=== PATIENT | female | born 1960 | race African-American/Black ===

== ENCOUNTER 2020-07-01 20:45 | Observation (INO) ==
[2020-07-01 21:12] LABS: Basophils % 0.5 %; Eosinophils # 0.1 K/mcL (0.0-0.6); Eosinophils % 1.3 %; Hematocrit 32.1 % (35.3-44.9); Hemoglobin 9.7 g/dL (11.5-15.4); Immature Granulocytes % 0.4 % (0-4); Lymphocytes # 2.3 K/mcL (0.6-4.6); Lymphocytes % 29.9 %; Mean Corpuscular HGB Conc 30.2 g/dL (31.6-35.5); Mean Corpuscular Hemoglobin 25.3 pg (28.0-33.3); Mean Corpuscular Volume 83.8 fL (83.0-100.0); Mean Platelet Volume 9.3 fL (9.4-12.4); Monocytes # 0.6 K/mcL (0.0-1.3); Monocytes % 8.5 %; Neutrophils # 4.5 K/mcL (1.6-8.9); Platelet Count 384 K/mcL (140-400); Red Blood Count 3.83 M/mcL (3.82-4.97); Segmented Neutrophils % 59.4 %; White Blood Count 7.5 K/mcL (4.3-11.1)
[2020-07-01 21:24] LABS: INR 1.1; Prothrombin Time 12.4 Seconds (9.4-12.1)
[2020-07-01 21:32] LABS: Alanine Aminotransferase 9 Units/L (7-52); Albumin 3.9 g/dL (3.5-5.7); Albumin/Globulin Ratio 1.1 (1.1-2.2); Alkaline Phosphatase 111 Units/L (34-104); Aspartate Amino Transferase 17 Units/L (13-39); BUN/Creatinine Ratio 14 (6-26); Bilirubin,Total 0.2 mg/dL (0.3-1.0); Blood Urea Nitrogen 10 mg/dL (6-20); Calcium 9.2 mg/dL (8.6-10.3); Carbon Dioxide 27 mEq/L (23-29); Chloride 99 mEq/L (98-107); Ethanol 234 mg/dL (Less than 10); Globulin 3.7 g/dL (2.4-3.5); Glucose 119 mg/dL (70-105); Magnesium 1.7 mg/dL (1.6-2.6); Osmolality,Calculated 292 (280-300); Potassium 3.4 mEq/L (3.5-5.1); Sodium 141 mEq/L (136-145); Total Protein 7.6 g/dL (6.4-8.9); eGFR For African Americans > 60 (> 60); eGFR For Non-African Americans > 60 (> 60)
[2020-07-01 21:34] LABS: Troponin I < 0.03 ng/mL (< 0.04)
[2020-07-01] MEDS ORDERED: 0.9 % Sodium Chloride 1,000 ML IV ONE (21:49)
[2020-07-01 22:11] LABS: Bilirubin,Urine Negative (Negative); Blood,Urine Negative (Negative); Clarity,Urine Clear (Clear); Color,Urine Yellow (Yellow); Glucose,Urine (UA) Normal (Normal); Ketones,Urine Negative (Negative); Leukocyte Esterase,Urine Negative (Negative); Nitrite,Urine Positive (Negative); Protein,Urine Negative (Neg-Trace); Urobilinogen,Urine Normal (Normal)
[2020-07-01 22:18] LABS: Bacteria,Urine Many per hpf (None-Few); Squamous Epithelial Cell,Urine Moderate per hpf (None-Few)
[2020-07-01 22:19] LABS: Hyaline Casts,Urine Moderate per lpf (None Seen)
[2020-07-01] MEDS ORDERED: Ketorolac 30 MG/ML VIAL IVP ONE (22:20)
[2020-07-01 22:25] LABS: Amphetamine Screen,Urine Negative ng/mL (Cutoff=1000); Barbiturate Screen,Urine Negative ng/mL (Cutoff=200); Benzodiazepines Screen,Urine Negative ng/mL (Cutoff=200); Cannabinoid Screen,Urine Negative ng/mL (Cutoff = 50); Cocaine Screen,Urine Negative ng/mL (Cutoff= 300); Opiate Screen,Urine Negative ng/mL (Cutoff=300); Phencyclidine Screen,Urine Negative ng/mL (Cutoff=25)
[2020-07-01] MEDS ORDERED: cefTRIAXone 1,000 MG in 0.9 % Sodium Chloride Mini Bag 100 ML IVPB ONE ×2 (22:48→23:53)
[2020-07-01] MEDS ORDERED: 0.9 % Sodium Chloride 1,000 ML IVC SCH (23:53)
[2020-07-01] MEDS ORDERED: Ondansetron 4 MG/2 ML VIAL IVP PRN (23:53)
[2020-07-01] MEDS ORDERED: Naloxone 0.4 MG/ML INJ IVP PRN (23:53)
[2020-07-02] MEDS ORDERED: MVI, adult with vitamin K 10 ML in 0.9 % Sodium Chloride 1,000 ML IVC ONE (07:48)
[2020-07-02] MEDS: Aspirin Enteric Coated 325 MG Tablet PO SCH (08:03)
[2020-07-02] MEDS: Sucralfate 1 GM TABLET PO SCH ×4 (08:03→20:39)
[2020-07-02] MEDS: PALIPERIDONE 1.5 MG PO SCH (08:05)
[2020-07-02] MEDS: (Vortioxetine Hydrobromide [Trintellix] 10 MG) PO SCH (08:05)
[2020-07-02] MEDS ORDERED: clonazePAM 0.5 MG TABLET PO SCH (09:00)
[2020-07-02 12:25] LABS: Adenovirus Not Detected (Not Detect); Coronavirus 229E Not Detected (Not Detect); Coronavirus HKU1 Not Detected (Not Detect); Coronavirus NL63 Not Detected (Not Detect); Coronavirus OC43 Not Detected (Not Detect); Human Metapneumovirus Not Detected (Not Detect); Human Rhinovirus/Enterovirus Not Detected (Not Detect); Influenza A Subtype 2009 H1 Not Detected (Not Detect)
[2020-07-02 12:26] LABS: Bordetella Pertussis Not Detected (Not Detect); Chlamydophila pneumoniae Not Detected (Not Detect); Influenza B Not Detected (Not Detect); Mycoplasma pneumoniae Not Detected (Not Detect); Parainfluenza Virus 1 Not Detected (Not Detect); Parainfluenza Virus 2 Not Detected (Not Detect); Parainfluenza Virus 3 Not Detected (Not Detect); Parainfluenza Virus 4 Not Detected (Not Detect); Respiratory Syncytial Virus Not Detected (Not Detect)
[2020-07-02] MEDS ORDERED: Acetaminophen 325 MG TABLET PO PRN (15:48)
[2020-07-02] MEDS ORDERED: Albuterol 2.5 MG/3 ML NEBULIZER IH PRN (15:52)
[2020-07-02] MEDS: Nicotine 21 MG PATCH.TD24 TD SCH (16:01)
[2020-07-02] MEDS: clonazePAM 0.5 MG TABLET PO SCH (20:39)
[2020-07-02] MEDS ORDERED: Melatonin 3 MG TABLET PO SCH (21:00)
[2020-07-02] MEDS ORDERED: cefTRIAXone 1,000 MG in 0.9 % Sodium Chloride Mini Bag 100 ML IVPB SCH (21:00)
[2020-07-03] MEDS ORDERED: *HR* Enoxaparin 40 MG/0.4 ML SYRINGE SQ SCH (06:00)
[2020-07-03 06:47] VITALS: BP 131/73
[2020-07-03 07:08] LABS: Basophils % 0.4 %; Eosinophils # 0.3 K/mcL (0.0-0.6); Eosinophils % 3.5 %; Hemoglobin 8.8 g/dL (11.5-15.4); Immature Granulocytes % 0.3 % (0-4); Lymphocytes # 1.7 K/mcL (0.6-4.6); Lymphocytes % 21.6 %; Mean Corpuscular HGB Conc 29.3 g/dL (31.6-35.5); Mean Corpuscular Hemoglobin 25.2 pg (28.0-33.3); Mean Platelet Volume 9.8 fL (9.4-12.4); Monocytes # 0.7 K/mcL (0.0-1.3); Monocytes % 9.6 %; Neutrophils # 4.9 K/mcL (1.6-8.9); Platelet Count 316 K/mcL (140-400); Red Blood Count 3.49 M/mcL (3.82-4.97); Red Cell Distribution Width 20.5 % (11.5-14.5); Segmented Neutrophils % 64.6 %; White Blood Count 7.6 K/mcL (4.3-11.1)
[2020-07-03] MEDS: Sucralfate 1 GM TABLET PO SCH ×2 (07:38→12:03)
[2020-07-03] MEDS: Nicotine 21 MG PATCH.TD24 TD SCH (07:38)
[2020-07-03] MEDS: clonazePAM 0.5 MG TABLET PO SCH (07:38)
[2020-07-03] MEDS: Aspirin Enteric Coated 325 MG Tablet PO SCH (07:38)
[2020-07-03] MEDS: PALIPERIDONE 1.5 MG PO SCH (07:39)
[2020-07-03] MEDS: (Vortioxetine Hydrobromide [Trintellix] 10 MG) PO SCH (07:39)
[2020-07-03 08:31] LABS: BUN/Creatinine Ratio 25 (6-26); Blood Urea Nitrogen 12 mg/dL (6-20); Calcium 8.8 mg/dL (8.6-10.3); Carbon Dioxide 35 mEq/L (23-29); Chloride 101 mEq/L (98-107); Glucose 114 mg/dL (70-105); Osmolality,Calculated 293 (280-300); Sodium 141 mEq/L (136-145); eGFR For African Americans > 60 (> 60); eGFR For Non-African Americans > 60 (> 60)
[2020-07-16] MEDS ORDERED: (Paliperidone Palmitate [Invega Sustenna] 234 MG) IM SCH (09:00)
== END 2020-07-03 12:32 | disposition home health service (06) ==
LOC: EMEROOPIK 20:45 → INPPIK 20:45
PROVIDERS: ADMIT Family Medicine; ATTEND Family Medicine

== ENCOUNTER 2020-08-22 10:29 | Inpatient (IN) ==
[2020-08-22 10:50] LABS: Basophils % 0.4 %; Eosinophils # 0.2 K/mcL (0.0-0.6); Eosinophils % 1.8 %; Hematocrit 28.4 % (35.3-44.9); Hemoglobin 7.8 g/dL (11.5-15.4); Immature Granulocytes % 0.4 % (0-4); Lymphocytes # 2.3 K/mcL (0.6-4.6); Lymphocytes % 20.9 %; Mean Corpuscular HGB Conc 27.5 g/dL (31.6-35.5); Mean Corpuscular Hemoglobin 21.9 pg (28.0-33.3); Mean Corpuscular Volume 79.8 fL (83.0-100.0); Mean Platelet Volume 9.7 fL (9.4-12.4); Monocytes # 0.8 K/mcL (0.0-1.3); Monocytes % 7.2 %; Neutrophils # 7.8 K/mcL (1.6-8.9); Nucleated Red Blood Cells 0.3 /100 WBC (0); Platelet Count 317 K/mcL (140-400); Red Blood Count 3.56 M/mcL (3.82-4.97); Red Cell Distribution Width 22.4 % (11.5-14.5); Segmented Neutrophils % 69.3 %; White Blood Count 11.2 K/mcL (4.3-11.1)
[2020-08-22 11:05] LABS: BUN/Creatinine Ratio 12 (6-26); Blood Urea Nitrogen 6 mg/dL (6-20); Calcium 8.3 mg/dL (8.6-10.3); Carbon Dioxide 38 mEq/L (23-29); Chloride 101 mEq/L (98-107); Glucose 107 mg/dL (70-105); Osmolality,Calculated 292 (280-300); Potassium 3.3 mEq/L (3.5-5.1); Sodium 142 mEq/L (136-145); eGFR For African Americans > 60 (> 60); eGFR For Non-African Americans > 60 (> 60)
[2020-08-22 11:07] LABS: INR 1.1; Prothrombin Time 12.4 Seconds (9.4-12.1)
[2020-08-22 11:09] LABS: Troponin I < 0.03 ng/mL (< 0.04)
[2020-08-22 11:24] LABS: Anisocytosis 1+ (Not Present); Hypochromasia Present (Not Present); Microcytosis Present (Not Present)
[2020-08-22 15:54] LABS: Adenovirus Not Detected (Not Detect); Coronavirus 229E Not Detected (Not Detect); Coronavirus HKU1 Not Detected (Not Detect); Coronavirus NL63 Not Detected (Not Detect); Coronavirus OC43 Not Detected (Not Detect); SARS-CoV-2 Not Detected (Not Detect)
[2020-08-22 15:55] LABS: Bordetella Pertussis Not Detected (Not Detect); Chlamydophila pneumoniae Not Detected (Not Detect); Human Metapneumovirus Not Detected (Not Detect); Human Rhinovirus/Enterovirus Not Detected (Not Detect); Influenza A Subtype 2009 H1 Not Detected (Not Detect); Influenza B Not Detected (Not Detect); Mycoplasma pneumoniae Not Detected (Not Detect); Parainfluenza Virus 1 Not Detected (Not Detect); Parainfluenza Virus 2 Not Detected (Not Detect); Parainfluenza Virus 3 Not Detected (Not Detect); Parainfluenza Virus 4 Not Detected (Not Detect); Respiratory Syncytial Virus Not Detected (Not Detect)
[2020-08-22] MEDS ORDERED: Naloxone 0.4 MG/ML INJ IVP PRN (16:41)
[2020-08-22] MEDS ORDERED: Acetaminophen 325 MG TABLET PO PRN (16:41)
[2020-08-22] MEDS ORDERED: Ondansetron ODT 4 MG TAB.RAPDIS SL PRN (16:41)
[2020-08-22] MEDS ORDERED: Perflutren Lipid Microsphere 1.3 ML in 0.9 % Sodium Chloride 8.7 ML IVP PRN (16:44)
[2020-08-22] MEDS: Losartan/HCTZ 50-12.5 TABLET PO SCH (18:15)
[2020-08-22] MEDS: levoFLOXacin 750 MG/150 ML 750 MG/150 ML BAG IVPB SCH (18:18)
[2020-08-22] MEDS: Budesonide/Formoterol 160/4.5 1 PUFF INH IH SCH (20:31)
[2020-08-22] MEDS: Ipratropium/Albuterol Neb 3 ML IH SCH ×2 (20:31→23:36)
[2020-08-22] MEDS: Furosemide 20 MG/2 ML VIAL IVP SCH (21:08)
[2020-08-22] MEDS: clonazePAM 0.5 MG TABLET PO SCH (21:09)
[2020-08-22] MEDS: Melatonin 3 MG TABLET PO SCH ×2 (21:09→21:15)
[2020-08-22] MEDS: Famotidine 20 MG TABLET PO SCH (21:09)
[2020-08-22] MEDS: MethylPREDNISolone 40 MG/ML VIAL IVP SCH (22:54)
[2020-08-22] MEDS: Sucralfate 1 GM TABLET PO SCH ×2 (22:54→23:22)
[2020-08-23] MEDS: Ipratropium/Albuterol Neb 3 ML IH SCH ×5 (04:18→22:13)
[2020-08-23] MEDS: Sucralfate 1 GM TABLET PO SCH ×4 (05:46→21:24)
[2020-08-23 06:15] LABS: Basophils % 0.2 %; Hematocrit 30.9 % (35.3-44.9); Hemoglobin 8.6 g/dL (11.5-15.4); Immature Granulocytes % 0.6 % (0-4); Lymphocytes # 0.9 K/mcL (0.6-4.6); Mean Corpuscular HGB Conc 27.8 g/dL (31.6-35.5); Mean Corpuscular Hemoglobin 22.2 pg (28.0-33.3); Mean Corpuscular Volume 79.6 fL (83.0-100.0); Mean Platelet Volume 10.5 fL (9.4-12.4); Monocytes # 0.2 K/mcL (0.0-1.3); Monocytes % 1.4 %; Nucleated Red Blood Cells 0.2 /100 WBC (0); Platelet Count 371 K/mcL (140-400); Red Blood Count 3.88 M/mcL (3.82-4.97); Red Cell Distribution Width 22.6 % (11.5-14.5); Segmented Neutrophils % 90.8 %; White Blood Count 12.4 K/mcL (4.3-11.1)
[2020-08-23 06:42] LABS: Alanine Aminotransferase 9 Units/L (7-52); Albumin 3.3 g/dL (3.5-5.7); Albumin/Globulin Ratio 0.9 (1.1-2.2); Alkaline Phosphatase 127 Units/L (34-104); Aspartate Amino Transferase 12 Units/L (13-39); BUN/Creatinine Ratio 11 (6-26); Bilirubin,Total 0.4 mg/dL (0.3-1.0); Blood Urea Nitrogen 6 mg/dL (6-20); Calcium 8.5 mg/dL (8.6-10.3); Carbon Dioxide 41 mEq/L (23-29); Chloride 97 mEq/L (98-107); Chol/HDL Ratio 2.4 (0-4.9); Cholesterol 129 mg/dL (< 200); Globulin 3.5 g/dL (2.4-3.5); Glucose 147 mg/dL (70-105); HDL Cholesterol 53 mg/dL (40-59); LDL Cholesterol,Calculated 65 mg/dL (< 100); Magnesium 1.7 mg/dL (1.6-2.6); Osmolality,Calculated 294 (280-300); Potassium 3.8 mEq/L (3.5-5.1); Sodium 142 mEq/L (136-145); Total Protein 6.8 g/dL (6.4-8.9); Triglycerides 57 mg/dL (< 150); eGFR For African Americans > 60 (> 60); eGFR For Non-African Americans > 60 (> 60)
[2020-08-23 06:45] LABS: Neutrophils # 11.3 K/mcL (1.6-8.9)
[2020-08-23 07:03] LABS: Anisocytosis 2+ (Not Present); Hypochromasia Present (Not Present)
[2020-08-23 07:04] LABS: Microcytosis Present (Not Present)
[2020-08-23] MEDS: Budesonide/Formoterol 160/4.5 1 PUFF INH IH SCH ×2 (07:41→22:13)
[2020-08-23 08:44] LABS: % Iron Saturation 5 % (15-50); Iron 21 mcg/dL (50-170); Transferrin 285 mg/dL (203-362)
[2020-08-23] MEDS: Furosemide 20 MG/2 ML VIAL IVP SCH (08:55)
[2020-08-23] MEDS: MethylPREDNISolone 40 MG/ML VIAL IVP SCH ×2 (08:56→16:34)
[2020-08-23] MEDS: clonazePAM 0.5 MG TABLET PO SCH ×2 (08:56→21:24)
[2020-08-23] MEDS: Famotidine 20 MG TABLET PO SCH ×2 (08:56→21:24)
[2020-08-23] MEDS: Aspirin Enteric Coated 81 MG Tablet PO SCH (08:56)
[2020-08-23] MEDS: Losartan/HCTZ 50-12.5 TABLET PO SCH (08:57)
[2020-08-23] MEDS: Vortioxetine Hydrobromide [Trintellix] 10 MG PO SCH (08:57)
[2020-08-23 09:02] LABS: Ferritin 11 ng/mL (10-120)
[2020-08-23 11:11] LABS: Folate 6.5 ng/mL (3.0-16.0)
[2020-08-23] MEDS: Nicotine 14 MG PATCH.TD24 TD SCH (11:35)
[2020-08-23] MEDS ORDERED: MethylPREDNISolone 40 MG/ML VIAL IVP SCH (11:45)
[2020-08-23] MEDS: levoFLOXacin 750 MG/150 ML 750 MG/150 ML BAG IVPB SCH (16:35)
[2020-08-23] MEDS: Furosemide 40 MG/4 ML VIAL IVP SCH (21:25)
[2020-08-24] MEDS: Ipratropium/Albuterol Neb 3 ML IH SCH ×4 (04:27→22:18)
[2020-08-24] MEDS: Melatonin 3 MG TABLET PO SCH ×2 (05:17→20:12)
[2020-08-24] MEDS: MethylPREDNISolone 40 MG/ML VIAL IVP SCH ×2 (06:16→16:49)
[2020-08-24 06:30] LABS: Basophils % 0.3 %; Eosinophils % 0.2 %; Hematocrit 29.9 % (35.3-44.9); Hemoglobin 8.3 g/dL (11.5-15.4); Immature Granulocytes % 0.5 % (0-4); Lymphocytes # 2.7 K/mcL (0.6-4.6); Lymphocytes % 25.2 %; Mean Corpuscular HGB Conc 27.8 g/dL (31.6-35.5); Mean Corpuscular Hemoglobin 21.8 pg (28.0-33.3); Mean Corpuscular Volume 78.5 fL (83.0-100.0); Monocytes # 1.2 K/mcL (0.0-1.3); Monocytes % 11.6 %; Neutrophils # 6.7 K/mcL (1.6-8.9); Nucleated Red Blood Cells 0.2 /100 WBC (0); Platelet Count 361 K/mcL (140-400); Red Blood Count 3.81 M/mcL (3.82-4.97); Segmented Neutrophils % 62.2 %; White Blood Count 10.7 K/mcL (4.3-11.1)
[2020-08-24 07:08] LABS: BUN/Creatinine Ratio 24 (6-26); Blood Urea Nitrogen 13 mg/dL (6-20); Calcium 8.5 mg/dL (8.6-10.3); Carbon Dioxide > 45 mEq/L (23-29); Chloride 93 mEq/L (98-107); Glucose 110 mg/dL (70-105); Osmolality,Calculated 297 (280-300); Potassium 3.2 mEq/L (3.5-5.1); Sodium 143 mEq/L (136-145); eGFR For African Americans > 60 (> 60); eGFR For Non-African Americans > 60 (> 60)
[2020-08-24 07:53] LABS: Anisocytosis 2+ (Not Present); Hypochromasia Present (Not Present); Microcytosis Present (Not Present)
[2020-08-24] MEDS: Furosemide 40 MG/4 ML VIAL IVP SCH (08:30)
[2020-08-24] MEDS: Cyanocobalamin (B-12) 1,000 MCG TABLET PO SCH (08:30)
[2020-08-24] MEDS: Aspirin Enteric Coated 81 MG Tablet PO SCH (08:30)
[2020-08-24] MEDS: clonazePAM 0.5 MG TABLET PO SCH ×2 (08:30→20:12)
[2020-08-24] MEDS: Famotidine 20 MG TABLET PO SCH ×2 (08:30→20:17)
[2020-08-24] MEDS: Nicotine 14 MG PATCH.TD24 TD SCH (08:30)
[2020-08-24] MEDS: Vortioxetine Hydrobromide [Trintellix] 10 MG PO SCH (08:31)
[2020-08-24] MEDS: Sucralfate 1 GM TABLET PO SCH ×4 (08:31→20:12)
[2020-08-24] MEDS: Losartan/HCTZ 50-12.5 TABLET PO SCH (08:31)
[2020-08-24] MEDS: Budesonide/Formoterol 160/4.5 1 PUFF INH IH SCH ×2 (09:29→22:25)
[2020-08-24 11:41] LABS: ABG Base Excess 15 mEq/L (-2 to 3); ABG HCO3 43 mEq/L (21-27); ABG Oxygen Saturation 97 % (95-98); ABG PCO2 70 mmHg (35-45); ABG PO2 95 mmHg (85-104); ABG TCO2 45 mEq/L (20-26); Blood Gas Pressure Support 12 cm H2O
[2020-08-24] MEDS: Insulin LISPRO 300 UNITS/3 ML VIAL SQ SCH ×3 (12:14→20:13)
[2020-08-24] MEDS ORDERED: D5% in Water 1,000 ML IVC PRN (13:29)
[2020-08-24] MEDS ORDERED: Dextrose Gel 15 GM/37.5 ML TUBE PO PRN ×2 (13:29)
[2020-08-24] MEDS ORDERED: *HR* Dextrose 50 % in Water (Vial) 50 ML VIAL IVP PRN (13:29)
[2020-08-24] MEDS: levoFLOXacin 750 MG/150 ML 750 MG/150 ML BAG IVPB SCH (16:49)
[2020-08-24] MEDS: acetaZOLAMIDE 250 MG TABLET PO SCH (20:11)
[2020-08-25] MEDS: Ipratropium/Albuterol Neb 3 ML IH SCH ×4 (03:56→22:55)
[2020-08-25 06:06] LABS: Basophils # 0.1 K/mcL (0.0-0.2); Basophils % 0.4 %; Eosinophils % 0.3 %; Hematocrit 30.6 % (35.3-44.9); Hemoglobin 8.5 g/dL (11.5-15.4); Immature Granulocytes % 1.2 % (0-4); Lymphocytes # 3.5 K/mcL (0.6-4.6); Lymphocytes % 26.7 %; Mean Corpuscular HGB Conc 27.8 g/dL (31.6-35.5); Mean Corpuscular Hemoglobin 22.2 pg (28.0-33.3); Mean Corpuscular Volume 79.9 fL (83.0-100.0); Mean Platelet Volume 10.3 fL (9.4-12.4); Monocytes # 1.4 K/mcL (0.0-1.3); Monocytes % 11.1 %; Neutrophils # 7.8 K/mcL (1.6-8.9); Nucleated Red Blood Cells 0.2 /100 WBC (0); Platelet Count 382 K/mcL (140-400); Red Blood Count 3.83 M/mcL (3.82-4.97); Segmented Neutrophils % 60.3 %
[2020-08-25] MEDS: Sucralfate 1 GM TABLET PO SCH ×4 (06:22→19:47)
[2020-08-25] MEDS: MethylPREDNISolone 40 MG/ML VIAL IVP SCH ×2 (06:22→16:36)
[2020-08-25 06:37] LABS: BUN/Creatinine Ratio 26 (6-26); Blood Urea Nitrogen 15 mg/dL (6-20); Calcium 8.9 mg/dL (8.6-10.3); Carbon Dioxide 41 mEq/L (23-29); Chloride 97 mEq/L (98-107); Glucose 97 mg/dL (70-105); Osmolality,Calculated 293 (280-300); Potassium 3.6 mEq/L (3.5-5.1); Sodium 141 mEq/L (136-145); eGFR For African Americans > 60 (> 60); eGFR For Non-African Americans > 60 (> 60)
[2020-08-25 07:07] LABS: Anisocytosis 1+ (Not Present); Hypochromasia Present (Not Present); Microcytosis Present (Not Present); Ovalocytes 2+ (Not Present); Platelet Estimate Normal (Normal)
[2020-08-25] MEDS: Insulin LISPRO 300 UNITS/3 ML VIAL SQ SCH ×4 (07:55→19:49)
[2020-08-25] MEDS: Nicotine 14 MG PATCH.TD24 TD SCH (08:19)
[2020-08-25] MEDS: Losartan/HCTZ 50-12.5 TABLET PO SCH (08:20)
[2020-08-25] MEDS: Cyanocobalamin (B-12) 1,000 MCG TABLET PO SCH (08:20)
[2020-08-25] MEDS: Aspirin Enteric Coated 81 MG Tablet PO SCH (08:20)
[2020-08-25] MEDS: Vortioxetine Hydrobromide [Trintellix] 10 MG PO SCH (08:20)
[2020-08-25] MEDS: acetaZOLAMIDE 250 MG TABLET PO SCH ×2 (08:20→19:47)
[2020-08-25] MEDS: Famotidine 20 MG TABLET PO SCH ×2 (08:20→19:47)
[2020-08-25] MEDS: clonazePAM 0.5 MG TABLET PO SCH ×2 (08:20→19:47)
[2020-08-25 08:35] LABS: ABG Base Excess 8 mEq/L (-2 to 3); ABG HCO3 36 mEq/L (21-27); ABG Oxygen Saturation 93 % (95-98); ABG PCO2 69 mmHg (35-45); ABG PH 7.33 pH Units (7.32-7.45); ABG PO2 75 mmHg (85-104); ABG TCO2 38 mEq/L (20-26)
[2020-08-25] MEDS: Budesonide/Formoterol 160/4.5 1 PUFF INH IH SCH ×2 (10:41→22:55)
[2020-08-25] MEDS: levoFLOXacin 750 MG/150 ML 750 MG/150 ML BAG IVPB SCH (16:37)
[2020-08-25] MEDS: Melatonin 3 MG TABLET PO SCH (19:46)
[2020-08-26] MEDS: Ipratropium/Albuterol Neb 3 ML IH SCH ×4 (04:43→21:29)
[2020-08-26] MEDS: Sucralfate 1 GM TABLET PO SCH ×4 (06:07→20:01)
[2020-08-26] MEDS: MethylPREDNISolone 40 MG/ML VIAL IVP SCH ×3 (06:07→22:31)
[2020-08-26 06:16] LABS: Basophils # 0.1 K/mcL (0.0-0.2); Basophils % 0.6 %; Eosinophils % 0.3 %; Hematocrit 33.6 % (35.3-44.9); Hemoglobin 9.2 g/dL (11.5-15.4); Immature Granulocytes % 1.4 % (0-4); Lymphocytes # 3.7 K/mcL (0.6-4.6); Lymphocytes % 25.8 %; Mean Corpuscular HGB Conc 27.4 g/dL (31.6-35.5); Mean Corpuscular Volume 80.4 fL (83.0-100.0); Mean Platelet Volume 10.4 fL (9.4-12.4); Monocytes # 1.3 K/mcL (0.0-1.3); Monocytes % 9.3 %; Platelet Count 421 K/mcL (140-400); Red Blood Count 4.18 M/mcL (3.82-4.97); Red Cell Distribution Width 23.3 % (11.5-14.5); Segmented Neutrophils % 62.6 %; White Blood Count 14.4 K/mcL (4.3-11.1)
[2020-08-26 06:39] LABS: BUN/Creatinine Ratio 30 (6-26); Blood Urea Nitrogen 18 mg/dL (6-20); Calcium 9.4 mg/dL (8.6-10.3); Carbon Dioxide 36 mEq/L (23-29); Chloride 99 mEq/L (98-107); Glucose 110 mg/dL (70-105); Osmolality,Calculated 293 (280-300); Potassium 3.9 mEq/L (3.5-5.1); Sodium 140 mEq/L (136-145); eGFR For African Americans > 60 (> 60); eGFR For Non-African Americans > 60 (> 60)
[2020-08-26 07:08] LABS: Anisocytosis 1+ (Not Present)
[2020-08-26 07:09] LABS: Platelet Estimate Normal (Normal); Polychromasia 1+ (Not Present); Stomatocytes 1+ (Not Present)
[2020-08-26 07:59] LABS: ABG Base Excess 6 mEq/L (-2 to 3); ABG HCO3 35 mEq/L (21-27); ABG Oxygen Saturation 97 % (95-98); ABG PCO2 73 mmHg (35-45); ABG PH 7.29 pH Units (7.32-7.45); ABG PO2 100 mmHg (85-104); ABG TCO2 37 mEq/L (20-26)
[2020-08-26] MEDS: Insulin LISPRO 300 UNITS/3 ML VIAL SQ SCH ×4 (08:13→20:02)
[2020-08-26] MEDS: Aspirin Enteric Coated 81 MG Tablet PO SCH (08:16)
[2020-08-26] MEDS: clonazePAM 0.5 MG TABLET PO SCH ×2 (08:16→20:01)
[2020-08-26] MEDS: Vortioxetine Hydrobromide [Trintellix] 10 MG PO SCH (08:17)
[2020-08-26] MEDS: Famotidine 20 MG TABLET PO SCH ×2 (08:17→20:01)
[2020-08-26] MEDS: Cyanocobalamin (B-12) 1,000 MCG TABLET PO SCH (08:17)
[2020-08-26] MEDS: Losartan/HCTZ 50-12.5 TABLET PO SCH (08:17)
[2020-08-26] MEDS: acetaZOLAMIDE 250 MG TABLET PO SCH ×2 (08:17→20:01)
[2020-08-26] MEDS: Nicotine 14 MG PATCH.TD24 TD SCH (08:18)
[2020-08-26] MEDS: Budesonide/Formoterol 160/4.5 1 PUFF INH IH SCH ×2 (10:39→21:30)
[2020-08-26] MEDS: levoFLOXacin 750 MG/150 ML 750 MG/150 ML BAG IVPB SCH (17:32)
[2020-08-26] MEDS: Melatonin 3 MG TABLET PO SCH (20:01)
[2020-08-27] MEDS: Ipratropium/Albuterol Neb 3 ML IH SCH ×2 (04:36→09:00)
[2020-08-27 06:23] LABS: Basophils # 0.1 K/mcL (0.0-0.2); Basophils % 0.3 %; Eosinophils % 0.1 %; Hematocrit 34.1 % (35.3-44.9); Hemoglobin 9.7 g/dL (11.5-15.4); Immature Granulocytes % 1.2 % (0-4); Lymphocytes # 2.1 K/mcL (0.6-4.6); Lymphocytes % 13.4 %; Mean Corpuscular HGB Conc 28.4 g/dL (31.6-35.5); Mean Corpuscular Hemoglobin 22.1 pg (28.0-33.3); Mean Corpuscular Volume 77.7 fL (83.0-100.0); Mean Platelet Volume 10.5 fL (9.4-12.4); Monocytes # 1.1 K/mcL (0.0-1.3); Monocytes % 7.3 %; Neutrophils # 11.9 K/mcL (1.6-8.9); Platelet Count 456 K/mcL (140-400); Red Blood Count 4.39 M/mcL (3.82-4.97); Red Cell Distribution Width 23.9 % (11.5-14.5); Segmented Neutrophils % 77.7 %; White Blood Count 15.3 K/mcL (4.3-11.1)
[2020-08-27 06:24] LABS: ABG Base Excess 4 mEq/L (-2 to 3); ABG HCO3 30 mEq/L (21-27); ABG Oxygen Saturation 91 % (95-98); ABG PCO2 52 mmHg (35-45); ABG PH 7.37 pH Units (7.32-7.45); ABG PO2 64 mmHg (85-104); ABG TCO2 32 mEq/L (20-26)
[2020-08-27 06:38] LABS: BUN/Creatinine Ratio 31 (6-26); Blood Urea Nitrogen 20 mg/dL (6-20); Calcium 9.2 mg/dL (8.6-10.3); Carbon Dioxide 30 mEq/L (23-29); Chloride 101 mEq/L (98-107); Glucose 139 mg/dL (70-105); Osmolality,Calculated 291 (280-300); Potassium 3.7 mEq/L (3.5-5.1); Sodium 138 mEq/L (136-145); eGFR For African Americans > 60 (> 60); eGFR For Non-African Americans > 60 (> 60)
[2020-08-27 06:52] LABS: Anisocytosis 1+ (Not Present); Hypochromasia Present (Not Present); Platelet Estimate Normal (Normal); Polychromasia 1+ (Not Present)
[2020-08-27 07:18] VITALS: BP 137/86
[2020-08-27] MEDS: clonazePAM 0.5 MG TABLET PO SCH (08:04)
[2020-08-27] MEDS: Sucralfate 1 GM TABLET PO SCH (08:04)
[2020-08-27] MEDS: acetaZOLAMIDE 250 MG TABLET PO SCH (08:04)
[2020-08-27] MEDS: Aspirin Enteric Coated 81 MG Tablet PO SCH (08:04)
[2020-08-27] MEDS: Losartan/HCTZ 50-12.5 TABLET PO SCH (08:04)
[2020-08-27] MEDS: Cyanocobalamin (B-12) 1,000 MCG TABLET PO SCH (08:05)
[2020-08-27] MEDS: Famotidine 20 MG TABLET PO SCH (08:05)
[2020-08-27] MEDS: Nicotine 14 MG PATCH.TD24 TD SCH (08:05)
[2020-08-27] MEDS: Insulin LISPRO 300 UNITS/3 ML VIAL SQ SCH (08:05)
[2020-08-27] MEDS: Vortioxetine Hydrobromide [Trintellix] 10 MG PO SCH (08:05)
[2020-08-27] MEDS ORDERED: Furosemide 40 MG TABLET PO ONE (08:30)
[2020-08-27] MEDS: Budesonide/Formoterol 160/4.5 1 PUFF INH IH SCH (09:00)
== END 2020-08-27 11:09 | disposition home health service (06) | DRG 194 ==
LOC: INPPIK 10:29 → EMEROOPIK 10:29 → INPPIK 16:42
PROVIDERS: ADMIT Family Medicine; ATTEND Family Medicine

== ENCOUNTER 2022-05-16 08:30 | Inpatient (IN) ==
[2022-05-16] MEDS ORDERED: Furosemide 40 MG/4 ML VIAL IVP ONE ×2 (09:19→16:54)
[2022-05-16 09:36] LABS: VBG HCO3 27 mEq/L (21-27); VBG PCO2 56 mmHg (41-51); VBG PO2 63 mmHg (25-50)
[2022-05-16 09:36] LABS: Basophils % 0.3 %; Hemoglobin 13.6 g/dL (11.5-15.4); Lymphocytes # 1.7 K/mcL (0.6-4.6); Lymphocytes % 12.5 %; Mean Corpuscular HGB Conc 30.2 g/dL (31.6-35.5); Mean Corpuscular Hemoglobin 30.2 pg (28.0-33.3); Mean Corpuscular Volume 99.8 fL (83.0-100.0); Mean Platelet Volume 10.4 fL (9.4-12.4); Monocytes # 0.9 K/mcL (0.0-1.3); Monocytes % 6.3 %; Neutrophils # 10.9 K/mcL (1.6-8.9); Platelet Count 260 K/mcL (140-400); Red Blood Count 4.51 M/mcL (3.82-4.97); Red Cell Distribution Width 18.8 % (11.5-14.5); Segmented Neutrophils % 79.9 %; White Blood Count 13.6 K/mcL (4.3-11.1)
[2022-05-16 09:45] LABS: INR 1.1; Prothrombin Time 12.8 Seconds (9.4-12.1)
[2022-05-16 09:56] LABS: Bilirubin,Urine Negative (Negative); Blood,Urine Small (Negative); Clarity,Urine Cloudy (Clear); Color,Urine Yellow (Yellow); Glucose,Urine (UA) Normal (Normal); Ketones,Urine Trace mg/dL (Negative); Leukocyte Esterase,Urine Negative (Negative); Nitrite,Urine Negative (Negative); Protein,Urine 100 mg/dL (Neg-Trace); Specific Gravity,Urine 1.025 (1.010-1.025); Urobilinogen,Urine Normal (Normal)
[2022-05-16 10:00] LABS: Acetaminophen < 10 mcg/mL (10-20); Alanine Aminotransferase 14 Units/L (7-52); Albumin 4.6 g/dL (3.5-5.7); Albumin/Globulin Ratio 1.3 (1.1-2.2); Alkaline Phosphatase 151 Units/L (34-104); Aspartate Amino Transferase 26 Units/L (13-39); BUN/Creatinine Ratio 25 (6-26); Bilirubin,Total 0.2 mg/dL (0.3-1.0); Blood Urea Nitrogen 40 mg/dL (8-23); Calcium 9.1 mg/dL (8.6-10.3); Carbon Dioxide 25 mEq/L (23-29); Chloride 95 mEq/L (98-107); Ethanol 139 mg/dL (Less than 10); Globulin 3.6 g/dL (2.4-3.5); Glucose 104 mg/dL (70-105); Lipase 17 Units/L (11-82); Magnesium 1.9 mg/dL (1.6-2.6); Osmolality,Calculated 296 (280-300); Potassium 4.1 mEq/L (3.5-5.1); Salicylate < 2.5 mg/dL (15.0-30.0); Sodium 138 mEq/L (136-145); Total Protein 8.2 g/dL (6.4-8.9); eGFR For African Americans 39 (> 60); eGFR For Non-African Americans 32 (> 60)
[2022-05-16 10:09] LABS: Amphetamine Screen,Urine Negative ng/mL (Cutoff=1000); Barbiturate Screen,Urine Negative ng/mL (Cutoff=200); Benzodiazepines Screen,Urine Negative ng/mL (Cutoff=200); Cannabinoid Screen,Urine Negative ng/mL (Cutoff = 50); Cocaine Screen,Urine Negative ng/mL (Cutoff= 300); Opiate Screen,Urine Negative ng/mL (Cutoff=300); Phencyclidine Screen,Urine Negative ng/mL (Cutoff=25)
[2022-05-16] MEDS ORDERED: 0.9 % Sodium Chloride 1,000 ML IVC ONE ×2 (10:14→11:19)
[2022-05-16 10:15] LABS: Hyaline Casts,Urine Few per lpf (None Seen); Squamous Epithelial Cell,Urine Few per hpf (None-Few); Uric Acid Crystals,Urine Present per hpf
[2022-05-16 10:16] LABS: Amorphous Sediment,Urine Few per hpf (None-Few); Bacteria,Urine Moderate per hpf (None-Few); Mucus,Urine Few per lpf (None-Few)
[2022-05-16] MEDS ORDERED: THIAMINE IV ONE (10:45)
[2022-05-16] MEDS ORDERED: [UNRECOGNIZED DRUG - OTHER] IV ONE (10:45)
[2022-05-16] MEDS ORDERED: MAGNESIUM SULFATE IV ONE (10:45)
[2022-05-16] MEDS ORDERED: MVI IV ONE (10:45)
[2022-05-16] MEDS ORDERED: VITAMIN K IV ONE (10:45)
[2022-05-16] MEDS ORDERED: Naloxone 0.4 MG/ML INJ IVP PRN ×2 (11:45→11:47)
[2022-05-16] MEDS ORDERED: *HR* LORazepam 2 MG/ML VIAL IVP PRN ×3 (11:48)
[2022-05-16] MEDS ORDERED: Pantoprazole 40 MG VIAL IVP SCH (12:23)
[2022-05-16] MEDS ORDERED: Paliperidone Palmitate 234 MG/1.5 ML SYRINGE IM SCH (12:30)
[2022-05-16 12:50] LABS: ABG Base Excess 0 mEq/L (-2 to 3); ABG HCO3 30 mEq/L (21-27); ABG Oxygen Saturation 86 % (95-98); ABG PCO2 77 mmHg (35-45); ABG PO2 66 mmHg (85-104); ABG TCO2 33 mEq/L (20-26)
[2022-05-16 14:23] LABS: ABG Base Excess 0 mEq/L (-2 to 3); ABG HCO3 32 mEq/L (21-27); ABG Oxygen Saturation 83 % (95-98); ABG PCO2 95 mmHg (35-45); ABG PH 7.14 pH Units (7.32-7.45); ABG PO2 64 mmHg (85-104); ABG TCO2 35 mEq/L (20-26); Blood Gas Pressure Support 18 cm H2O
[2022-05-16 14:55] VITALS: RESP 18
[2022-05-16] MEDS ORDERED: clonazePAM 0.5 MG TABLET PO SCH (15:00)
[2022-05-16 15:10] LABS: BUN/Creatinine Ratio 35 (6-26); Blood Urea Nitrogen 39 mg/dL (8-23); Calcium 7.3 mg/dL (8.6-10.3); Carbon Dioxide 25 mEq/L (23-29); Chloride 101 mEq/L (98-107); Glucose 101 mg/dL (70-105); Osmolality,Calculated 296 (280-300); Potassium 4.7 mEq/L (3.5-5.1); Sodium 138 mEq/L (136-145); eGFR For African Americans > 60 (> 60); eGFR For Non-African Americans 50 (> 60)
[2022-05-16 16:11] LABS: ABG Base Excess 0 mEq/L (-2 to 3); ABG HCO3 31 mEq/L (21-27); ABG Oxygen Saturation 90 % (95-98); ABG PCO2 80 mmHg (35-45); ABG PO2 76 mmHg (85-104); ABG TCO2 33 mEq/L (20-26); Blood Gas Pressure Support 22 cm H2O
[2022-05-16] MEDS ORDERED: Sucralfate 1 GM TABLET PO SCH (16:30)
[2022-05-16 17:29] VITALS: TEMP 99.4
[2022-05-16] MEDS ORDERED: Furosemide 20 MG/2 ML VIAL IVP ONE (17:33)
[2022-05-16 18:08] VITALS: BP 119/72; PULSE 105; O2SAT 98
[2022-05-16] MEDS ORDERED: Lactulose Oral Soln 20 GM/30 ML UDC PO SCH (21:00)
[2022-05-16] MEDS ORDERED: Budesonide/Formoterol 160/4.5 1 PUFF INH IH SCH (22:00)
[2022-05-17] MEDS ORDERED: Ascorbic Acid 500 MG TABLET PO SCH (09:00)
[2022-05-17] MEDS ORDERED: PALIPERIDONE 1.5 MG PO SCH (09:00)
[2022-05-17] MEDS ORDERED: Iron Polysaccharide Complex 150 MG CAPSULE PO SCH (09:00)
[2022-05-17] MEDS ORDERED: Aspirin Enteric Coated 81 MG Tablet PO SCH (09:00)
[2022-05-17] MEDS ORDERED: Cyanocobalamin (B-12) 1,000 MCG TABLET PO SCH (09:00)
== END 2022-05-16 18:59 | disposition short-term general hospital (02) | DRG 816 ==
LOC: EMEROOPIK 08:30 → INPPIK 08:30
PROVIDERS: ADMIT Family Medicine; ATTEND Family Medicine

== ENCOUNTER 2022-07-24 14:20 | Observation (INO) ==
[2022-07-24] MEDS ORDERED: Furosemide 40 MG/4 ML VIAL IVP ONE (15:01)
[2022-07-24 15:21] LABS: Basophils # 0.1 K/mcL (0.0-0.2); Basophils % 0.6 %; Eosinophils # 0.1 K/mcL (0.0-0.6); Eosinophils % 0.5 %; Hematocrit 43.4 % (35.3-44.9); Hemoglobin 12.8 g/dL (11.5-15.4); Lymphocytes # 1.5 K/mcL (0.6-4.6); Lymphocytes % 12.1 %; Mean Corpuscular HGB Conc 29.5 g/dL (31.6-35.5); Mean Corpuscular Hemoglobin 28.1 pg (28.0-33.3); Mean Corpuscular Volume 95.2 fL (83.0-100.0); Mean Platelet Volume 10.9 fL (9.4-12.4); Monocytes # 0.6 K/mcL (0.0-1.3); Monocytes % 4.9 %; Nucleated Red Blood Cells 0.2 /100 WBC (0); Platelet Count 259 K/mcL (140-400); Red Blood Count 4.56 M/mcL (3.82-4.97); Segmented Neutrophils % 80.9 %; White Blood Count 12.4 K/mcL (4.3-11.1)
[2022-07-24 15:29] LABS: Prothrombin Time 11.4 Seconds (9.4-12.1)
[2022-07-24 15:31] LABS: Activated Partial Thrombo Time 30.8 Seconds (26.0-36.0)
[2022-07-24 15:40] LABS: BUN/Creatinine Ratio 16 (6-26); Blood Urea Nitrogen 9 mg/dL (8-23); Calcium 8.6 mg/dL (8.6-10.3); Carbon Dioxide 35 mEq/L (23-29); Chloride 102 mEq/L (98-107); Glucose 129 mg/dL (70-105); Osmolality,Calculated 292 (280-300); Sodium 141 mEq/L (136-145)
[2022-07-24 15:42] LABS: Troponin I < 0.03 ng/mL (< 0.04)
[2022-07-24] MEDS ORDERED: Naloxone 0.4 MG/ML INJ IVP PRN (16:19)
[2022-07-24] MEDS ORDERED: Acetaminophen 325 MG TABLET PO PRN (16:19)
[2022-07-24] MEDS ORDERED: Ondansetron 4 MG/2 ML VIAL IVP PRN (16:19)
[2022-07-24] MEDS ORDERED: Ipratropium/Albuterol Neb 3 ML IH PRN (16:22)
[2022-07-24] MEDS ORDERED: Nicotine 21 MG PATCH.TD24 TD SCH (16:42)
[2022-07-24] MEDS: (Diclofenac Sodium [Voltaren] 100 GM Gel..Gram.) TP SCH (20:02)
[2022-07-24] MEDS: Nicotine 21 MG PATCH.TD24 TD SCH (20:10)
[2022-07-24] MEDS: clonazePAM 0.5 MG TABLET PO SCH (20:11)
[2022-07-24] MEDS: Sucralfate 1 GM TABLET PO SCH (20:12)
[2022-07-24] MEDS: Budesonide/Formoterol 160/4.5 1 PUFF INH IH SCH (20:33)
[2022-07-24] MEDS ORDERED: PALIPERIDONE 1.5 MG PO SCH (21:00)
[2022-07-25 05:02] LABS: Hematocrit 44.4 % (35.3-44.9); Hemoglobin 12.9 g/dL (11.5-15.4); Mean Corpuscular HGB Conc 29.1 g/dL (31.6-35.5); Mean Corpuscular Volume 96.3 fL (83.0-100.0); Mean Platelet Volume 11.4 fL (9.4-12.4); Platelet Count 282 K/mcL (140-400); Red Blood Count 4.61 M/mcL (3.82-4.97); Red Cell Distribution Width 18.2 % (11.5-14.5); White Blood Count 12.8 K/mcL (4.3-11.1)
[2022-07-25 05:21] LABS: BUN/Creatinine Ratio 15 (6-26); Blood Urea Nitrogen 11 mg/dL (8-23); Calcium 9.1 mg/dL (8.6-10.3); Carbon Dioxide 38 mEq/L (23-29); Chloride 101 mEq/L (98-107); Glucose 128 mg/dL (70-105); Osmolality,Calculated 299 (280-300); Potassium 4.2 mEq/L (3.5-5.1); Sodium 144 mEq/L (136-145)
[2022-07-25] MEDS ORDERED: *HR* Enoxaparin 40 MG/0.4 ML SYRINGE SQ SCH (06:00)
[2022-07-25] MEDS: Furosemide 40 MG/4 ML VIAL IVP SCH ×2 (06:16→16:29)
[2022-07-25] MEDS ORDERED: Multivit/Ca/Min/Fe/FA 1 TAB TABLET PO SCH (09:00)
[2022-07-25] MEDS ORDERED: Ascorbic Acid 500 MG TABLET PO SCH (09:00)
[2022-07-25] MEDS ORDERED: predniSONE 10 MG TABLET PO SCH (09:00)
[2022-07-25] MEDS ORDERED: (Vortioxetine Hydrobromide [Trintellix] 10 MG Tablet) PO SCH (09:00)
[2022-07-25] MEDS ORDERED: Cyanocobalamin (B-12) 1,000 MCG TABLET PO SCH (09:00)
[2022-07-25] MEDS ORDERED: Iron Polysaccharide Complex 150 MG CAPSULE PO SCH (09:00)
[2022-07-25] MEDS ORDERED: Aspirin Enteric Coated 81 MG Tablet PO SCH (09:00)
[2022-07-25] MEDS: Sucralfate 1 GM TABLET PO SCH ×2 (09:10→16:29)
[2022-07-25] MEDS: clonazePAM 0.5 MG TABLET PO SCH (09:11)
[2022-07-25] MEDS: (Diclofenac Sodium [Voltaren] 100 GM Gel..Gram.) TP SCH ×2 (09:12→16:29)
[2022-07-25] MEDS: Nicotine 21 MG PATCH.TD24 TD SCH (09:12)
[2022-07-25] MEDS: Budesonide/Formoterol 160/4.5 1 PUFF INH IH SCH (09:13)
[2022-07-25 16:58] LABS: ABG Base Excess 9 mEq/L (-2 to 3); ABG HCO3 40 mEq/L (21-27); ABG Oxygen Saturation 72 % (95-98); ABG PCO2 80 mmHg (35-45); ABG PO2 44 mmHg (85-104); ABG TCO2 42 mEq/L (20-26)
[2022-07-25 18:15] LABS: ABG Base Excess 10 mEq/L (-2 to 3); ABG HCO3 42 mEq/L (21-27); ABG Oxygen Saturation 95 % (95-98); ABG PCO2 89 mmHg (35-45); ABG PH 7.28 pH Units (7.32-7.45); ABG PO2 90 mmHg (85-104); ABG TCO2 45 mEq/L (20-26); Blood Gas Pressure Support 18 cm H2O
[2022-07-25] MEDS ORDERED: methylPREDNISolone 125 MG/2 ML VIAL IVP ONE (19:22)
[2022-07-25 19:23] VITALS: BP 119/74; PULSE 85; RESP 20; TEMP 98.6; O2SAT 96
[2022-07-25 23:16] LABS: Adenovirus Not Detected (Not Detect); Bordetella Pertussis Not Detected (Not Detect); Chlamydophila pneumoniae Not Detected (Not Detect); Coronavirus 229E Not Detected (Not Detect); Coronavirus HKU1 Not Detected (Not Detect); Coronavirus NL63 Not Detected (Not Detect); Coronavirus OC43 Not Detected (Not Detect); Human Metapneumovirus Not Detected (Not Detect); Human Rhinovirus/Enterovirus Not Detected (Not Detect); Influenza A Subtype 2009 H1 Not Detected (Not Detect); Influenza B Not Detected (Not Detect); Mycoplasma pneumoniae Not Detected (Not Detect); Parainfluenza Virus 1 Not Detected (Not Detect); Parainfluenza Virus 2 Not Detected (Not Detect); Parainfluenza Virus 3 Not Detected (Not Detect); Parainfluenza Virus 4 Not Detected (Not Detect); Respiratory Syncytial Virus Not Detected (Not Detect); SARS-CoV-2 Not Detected (Not Detect)
== END 2022-07-25 19:45 | disposition short-term general hospital (02) ==
LOC: EMEROOPIK 14:20 → INPPIK 14:20
PROVIDERS: ADMIT Registered Nurse Emergency; ATTEND Registered Nurse Emergency